=== PATIENT | male | born 1980 | race African-American/Black ===

== ENCOUNTER 2017-09-20 06:10 | Inpatient (IN) | payer BC ==
[~2017-09-20] VITALS: Ht 175.3 cm; Wt 67.6 kg
[2017-09-20] VITALS (40 sets, daily range): BP systolic 94–212; BP diastolic 52–130
--- NOTE | 2017-09-20 06:10 | NUR ---
PT GEOFFREY ALS. TAKEN TO BED 3
--- NOTE | 2017-09-20 06:15 | NUR ---
37YO M BIBA TO ER WITH ALTERED MENTAL STATUS. PER EMS PT WAS AT DIALYSIS, RECEIVED 15 MIN OF TX BEFORE C/O N/V, CP. LAST DIALYSIS TX ON 09/16. PT UNABLE TO RECALL HOME MEDS. DIALYSIS SHUNT ON LEFT CHEST, SKIN WARM DRY INTACT,. PT HAS N/V, SKIN IS PINK/WARM/DRY; AAOX4 WITH EVEN AND STEADY GAIT; LUNGS CLEAR BL; HR EVEN AND REGULAR; PT DENIES ANY FEVER, CP, SOB, OR COUGH AT THIS TIME; PATIENT STATES PAIN OF 0/10 AT THIS TIME; VSS; PATIENT POSITIONED FOR COMFORT; HOB ELEVATED; BEDRAILS UP X2; BED DOWN. ER MD MADE AWARE OF PT STATUS. Addendum: 09/20/17 at 0703 by [email or web address] 37YO M BIBA TO ER WITH ALTERED MENTAL STATUS. PER EMS PT WAS AT DIALYSIS, RECEIVED 15 MIN OF TX BEFORE C/O N/V, CP. LAST DIALYSIS TX ON 09/16. PT UNABLE TO RECALL HOME MEDS. DIALYSIS SHUNT ON LEFT CHEST, SKIN WARM DRY INTACT,. PT HAS N/V, SKIN IS PINK/WARM/DRY; AAOX4 WITH EVEN AND STEADY GAIT; LUNGS CLEAR BL; HR EVEN AND REGULAR; PT DENIES ANY FEVER, SOB, OR COUGH AT THIS TIME; PATIENT STATES PAIN OF 0/10 AT THIS TIME; VSS; PATIENT POSITIONED FOR COMFORT; HOB ELEVATED; BEDRAILS UP X2; BED DOWN. ER MD MADE AWARE OF PT STATUS.
--- NOTE | 2017-09-20 06:17 | NUR ---
Dr. Roque evaluating at bedside.
[2017-09-20] MEDS ORDERED: ONDANSETRON 4 MG/2 ML VIAL IVP ONE (06:25)
--- NOTE | 2017-09-20 06:27 | NUR ---
PT TAKEN TO CT
--- NOTE | 2017-09-20 06:50 | NUR ---
PT BACK FROM CT
--- NOTE | 2017-09-20 06:50 | NUR ---
PT RETURN FROM CT
[2017-09-20] MEDS ORDERED: HUM SUBQ (07:11)
[2017-09-20] MEDS ORDERED: CARV25TA PO (07:11)
[2017-09-20] MEDS ORDERED: SEVE800T6 PO (07:11)
[2017-09-20] MEDS ORDERED: FURO-570 PO (07:11)
[2017-09-20] MEDS ORDERED: INSU100S22 SUBQ (07:11)
[2017-09-20] MEDS ORDERED: CLON0.2T43 PO (07:11)
[2017-09-20] MEDS ORDERED: HYDR100T79 PO (07:11)
[2017-09-20] MEDS ORDERED: ALPR0.5T2 PO (07:11)
[2017-09-20] MEDS ORDERED: CIPR250T6 PO (07:11)
[2017-09-20] MEDS ORDERED: METOCLOPRAMIDE 10 MG/2 ML INJ VIAL IVP ONE (07:15)
--- NOTE | 2017-09-20 07:15 | NUR ---
dry heaving repeatedly, somnolent---htn notified
[2017-09-20] MEDS ORDERED: hydrALAZINE 20 MG/ML VIAL IVP ONE (07:20)
--- NOTE | 2017-09-20 07:30 | NUR ---
RECIEVED REPORT FROM TARSHA.
--- NOTE | 2017-09-20 07:32 | NUR ---
NADR AT THIS TIME
[2017-09-20] MEDS ORDERED: KETOROLAC 30 MG/ML VIAL IVP ONE (07:40)
--- NOTE | 2017-09-20 08:07 | NUR ---
NADR AT THIS TIME
[2017-09-20] MEDS ORDERED: PROMETHAZINE 25 MG/ML VIAL IM ONE (08:10)
[2017-09-20 08:11] LABS: BASOPHILS # (AUTO) 0.1 K/uL (0.00-0.22); BASOPHILS % (AUTO) 1.6 % (0.0-2.0); EOSINOPHILS # (AUTO) 0.1 K/uL (0-0.4); EOSINOPHILS % (AUTO) 1.4 % (0.0-4.0); HEMATOCRIT 34.8 % (36-52); HEMOGLOBIN 11.1 g/dL (12.0-18.0); LYMPHOCYTES # (AUTO) 0.7 K/uL (2.0-11.5); MEAN CORPUSCULAR HEMOGLOBIN 27 pg (27-31); MEAN CORPUSCULAR HGB CONC 32 g/dL (33-37); MEAN CORPUSCULAR VOLUME 86.3 fL (80-94); MONOCYTES # (AUTO) 0.3 K/uL (0.8-1.0); MONOCYTES % (AUTO) 6.8 % (1.7-9.3); NEUTROPHILS # (AUTO) 3.2 K/uL (1.8-7.7); NEUTROPHILS % (AUTO) 75.2 % (42.2-75.2); PLATELET COUNT (AUTO) 280 K/uL (140-450); RED BLOOD CELL COUNT(AUTO) 4.04 MIL/uL (4.20-6.10); RED CELL DISTRIBUTION WIDTH 14.5 % (11.6-13.7); WHITE BLOOD COUNT (AUTO) 4.4 K/uL (4.8-10.8)
--- NOTE | 2017-09-20 08:31 | NUR ---
NADR AT THIS TIME
--- NOTE | 2017-09-20 08:34 | NUR ---
PATIENT STATES HE DOES NOT PRODUCE URINE AND CANNOT PORDUCE A SAMPLE. MD NOTIFIED.
[2017-09-20 08:39] LABS: ALBUMIN 3.6 g/dL (3.4-5.0); ANION GAP 22.4 (8-16); CARBON DIOXIDE 20.8 mmol/L (21-32); POTASSIUM 4.2 mmol/L (3.5-5.1); TOTAL BILIRUBIN 0.4 mg/dL (0.0-1.0)
[2017-09-20 08:42] LABS: ACETAMINOPHEN < 0.5 ug/ml (10-30); SALICYLATE < 2.8 mg/dL (2.8-20.0)
[2017-09-20 08:45] LABS: CREATININE 16.6 mg/dL (0.7-1.3)
--- NOTE | 2017-09-20 09:03 | NUR ---
Patients vitals were reassessed and b/p is still elevated, 217/119. Patient also states still in pain, 01/13. iv flushed with 5mL of NS. ER/MD notified of patients status.
[2017-09-20] MEDS ORDERED: NITROGLYCERIN 50 MG/D5W PREMIX 250 ML IV ONE (09:05)
[2017-09-20] MEDS ORDERED: MORPHINE SULFATE 2 MG/ML SYR IVP ONE (09:10)
--- NOTE | 2017-09-20 09:44 | NUR ---
NITRO DRIP INCREASED TO 10MCG/MIN
[2017-09-20] MEDS ORDERED: MORPHINE SULFATE 4 MG/ML SYR ONE (09:52)
--- NOTE | 2017-09-20 10:30 | NUR ---
NTG INCREASED TO 35MCG/MIN
[2017-09-20] MEDS ORDERED: DEXTROSE 50% 50 ML SYR IVP PRN (11:30)
[2017-09-20] MEDS ORDERED: ONDANSETRON 4 MG/2 ML VIAL IVP PRN (11:30)
[2017-09-20] MEDS ORDERED: MORPHINE SULFATE 4 MG/ML SYR IVP ONE (11:30)
[2017-09-20] MEDS ORDERED: ACETAMINOPHEN 325 MG TAB PO PRN (11:30)
[2017-09-20] MEDS ORDERED: NITROGLYCERIN 50 MG/D5W PREMIX 250 ML IV PRN (11:30)
[2017-09-20] MEDS ORDERED: LORazepam 2 MG/ML VIAL IVP PRN (11:30)
[2017-09-20] MEDS ORDERED: cloNIDine 0.1 MG TAB PO PRN (11:30)
[2017-09-20] MEDS ORDERED: HYDROcodone/APAP 5/325 MG 1 TAB TAB PO PRN ×2 (11:30)
--- NOTE | 2017-09-20 11:51 | NUR ---
NTG AT 100MCG/MIN. BP AT 203/112
--- NOTE | 2017-09-20 11:51 | NUR ---
NADR AT THIS TIME
--- NOTE | 2017-09-20 11:53 | NUR ---
Dr. Barone at bedside.
[2017-09-20] MEDS: BLOOD GLUCOSE MONITORING 1 DEV DEV FS SCH ×3 (12:00→21:45)
--- NOTE | 2017-09-20 13:02 | NUR ---
SPOKE WITH HARMAN AT ICU REGARDING DYALISIS. HARMAN INFORMED US THAT SHE WOULD CALL THE AGENCY FOR DYALISIS.
--- NOTE | 2017-09-20 13:15 | NUR ---
RECEIVED REPORT FROM RN IN ED. PT IS VERY LETHARGIC. TRANSFERRED TO ICU WITH NITRO RUNNING 100 ML/HR. PT HAS A PORT LEFT SIDE OF CHEST. RIGHT 18 HUSEYIN ON RIGHT WRIST. PT IS ABLE TO MOVE ALL EXTREMITIES. PT IS A&0X4. SETTLED PT IN BED AND ON CARDIAC MONITORED. ORIENTED TO UNIT. WILL CLOSELY MONITOR.
--- NOTE | 2017-09-20 13:24 | NUR ---
Patient will be admitted to care of DR. MOURA. Admited to ICU. Will go to room 2. Belongings list completed. Report to DELVIN KATHLEEN.
--- NOTE | 2017-09-20 13:28 | NUR ---
DR COELLO AT BEDSIDE, RECEIVED ORDERS. PT VERY LETHARGIC.
[2017-09-20] MEDS: hydrALAZINE 25 MG TAB PO SCH ×2 (13:44→18:43)
[2017-09-20] MEDS: SEVELAMER CARBONATE 800 MG TAB PO SCH ×2 (13:46→18:41)
[2017-09-20] MEDS ORDERED: NIFEdipine 30 MG TABER PO SCH (13:57)
[2017-09-20] MEDS ORDERED: MORPHINE SULFATE 4 MG/ML SYR IVP PRN (14:05)
--- NOTE | 2017-09-20 14:10 | NUR ---
DR COTE AT BEDSIDE, RECEIVED ORDERS. WILL CLOSELY MONITOR.
[2017-09-20] MEDS: LABETALOL 100 MG/20 ML VIAL IV PRN ×2 (14:29→16:44)
[2017-09-20] MEDS ORDERED: PROBIOTIC SCREEN 1 EA MISC MC PRN (15:20)
--- NOTE | 2017-09-20 16:40 | NUR ---
DIALYSIS BEGAN. BLOOD BANK TECHNOLOGIST AT BEDSIDE
--- NOTE | 2017-09-20 16:52 | NUR ---
PAGING DR. MOURA ABOUT PT BLOOD SUGAR SAYING "HIGH" WHEN CHECKED AT 1630
--- NOTE | 2017-09-20 16:57 | NUR ---
SPOKE WITH DR. MOURA ABOUT BLOOD SUGAR. RECEIVED ORDERS TO CHECK BS AFTER PT FINISHES DIALYSIS. IF BS OVER 500; START INSULIN DRIP 5UNIT/HR.
--- NOTE | 2017-09-20 19:25 | NUR ---
GAVE REPORT TO NIGHT RN FOR CONTINUATION OF CARE
--- NOTE | 2017-09-20 19:44 | NUR ---
RECEIVED SBAR FROM HEVER HARGROVE. DX HYPERTENSIVE EMERGENCY. PATIENT IS SLEEPING IN BED, BUT CAN BE AROUSED BY NAME. NO SIGNS OF RESPIRATORY DISTRESS. PATIENT HAS A NASAL CANNULA AT 2LPM AND TOLERATING WELL. BREATH SOUNDS ARE CLEAR UPON AUSCULTATION AND BOWEL SOUNDS ARE ACTIVE. THERE IS A #20 IN THE RIGHT HAND WITH PATIENT RECEIVING NITROGLYCERIN AT 120 MCG/HR. THERE IS A PERMACATH IN THE [facility] FOR HEMODIALYSIS. DRESSING IS DRY, INTACT, AND CLEAN. INITIAL ASSESSMENT COMPLETED. HOB AT 30 DEGREES WITH BED IN LOWEST POSITION. CALL LIGHT WITHIN REACH. CONTINUE TO MONITOR PATIENT.
[2017-09-20 19:52] LABS: ALBUMIN 3.7 g/dL (3.4-5.0); BILIRUBIN,DIRECT 0.1 mg/dL (0.0-0.3); TOTAL BILIRUBIN 0.5 mg/dL (0.0-1.0)
[2017-09-20] MEDS ORDERED: INSULIN LANTUS 100 UNITS/ML 10 ML VIAL SUBQ SCH (21:00)
[2017-09-20] MEDS: HYDROcodone/APAP 5/325 MG 1 TAB TAB PO PRN (21:30)
[2017-09-20] MEDS: CARVEDILOL 12.5 MG TAB PO SCH (21:35)
[2017-09-20] MEDS: FUROSEMIDE 40 MG TAB PO SCH (21:36)
--- NOTE | 2017-09-20 21:59 | NUR ---
TOLERATED DUE MEDICATIONS. NO SIGNS OF SOB NOTED. HOB AT 30 DEGREES WITH BED IN LOWEST POSITION. CONTINUE TO MONITOR PATIENT.
--- NOTE | 2017-09-20 22:02 | NUR ---
BLOOD SUGAR IS 543 AND PATIENT'S BP REMAINS UNCONTROLLED WITH SBP IN THE 200'S. PAGED DR. WHELAN. WILL WAIT FOR CALL BACK.
--- NOTE | 2017-09-20 22:05 | NUR ---
SPOKE TO DR. WHELAN REGARDING PATIENT'S BS AND BP. NEW ORDERS RECEIVED. ADMINISTER 18 UNITS OF HUMALOG INSULIN STAT AND ADDITIONAL 10 UNITS OF LEVEMIR INSULIN. D/C NITROGLYCERIN DRIP AND START CARDENE DRIP TO KEEP SBP UNDER 160. CLARIFIED LABETALOL PRN FREQUENCY. DR. WHELAN STATED TO ADMINISTER LABETALOL 10MG IVP Q10MIN. CHARGE NURSE MADE AWARE. WILL FOLLOW UP WITH NEW MD ORDERS. Addendum: 09/20/17 at 2221 by Amara Lockhart RN LANTUS, NOT LEVEMIR, INSULIN
[2017-09-20] MEDS ORDERED: LABETALOL 100 MG/20 ML VIAL IV PRN (22:15)
[2017-09-20] MEDS ORDERED: INSULIN LANTUS 100 UNITS/ML 10 ML VIAL SUBQ ONE (22:30)
[2017-09-20] MEDS ORDERED: INSULIN LISPRO 100 UNITS/ML VIAL SUBQ ONE (22:30)
--- NOTE | 2017-09-20 23:05 | NUR ---
NITROGLYCERIN DRIP HOLD BECAUSE THE BP WENT DOWN TO 91/51 HR 87/MIN. CLOSE MONITORING DONE.
[2017-09-20] MEDS ORDERED: chlorproMAZINE 25 MG TAB PO PRN (23:45)
--- NOTE | 2017-09-20 23:45 | NUR ---
BLOOD PRESSURE IS 78/47. PAGED DR. WHELAN. WILL WAIT FOR CALL BACK.
--- NOTE | 2017-09-20 23:53 | NUR ---
SPOKE TO DR. WHELAN REGARDING PATIENT'S BP. ORDERED 1 LITER NS BOLUS AND MONITOR PATIENT. CHARGE NURSE MADE AWARE. CONTINUE TO MONITOR. Addendum: 09/21/17 at 0353 by Amara Lockhart RN ALSO INFORMED DR. WHELAN THAT REGI LANDAVERDE IS NOT AVAILABLE IN [employer].
[2017-09-20] MEDS ORDERED: NACL 0.9% 1,000 ML IV ONE (23:55)
[2017-09-21] VITALS (11 sets, daily range): BP systolic 91–127; BP diastolic 51–77
--- NOTE | 2017-09-21 02:38 | NUR ---
PATIENT SLEEPING IN BED. VITALS SIGNS WNL. NO SIGNS OF RESPIRATORY DISTRESS. HOB AT 30 DEGREES WITH BED IN LOWEST POSITION. CALL LIGHT WITHIN REACH. CONTINUE TO MONITOR PATIENT.
[2017-09-21] MEDS: HYDROcodone/APAP 5/325 MG 1 TAB TAB PO PRN ×3 (04:53→22:09)
--- NOTE | 2017-09-21 05:28 | NUR ---
PATIENT AROUSABLE BY NAME. TOLERATED DUE MEDICATION. ASKED PATIENT IF HE WANTED SUPPLIES TO PERFORM SELF MORNING CARE. PATIENT REFUSED MORNING CARE AT THIS TIME AND REQUESTED TO SLEEP. PATIENT'S NEEDS MET AT THIS TIME. WILL CONTINUE TO MONITOR PATIENT.
[2017-09-21 05:53] LABS: ALBUMIN 2.8 g/dL (3.4-5.0); CARBON DIOXIDE 28.4 mmol/L (21-32); MAGNESIUM 2.1 mg/dL (1.8-2.4); POTASSIUM 4.4 mmol/L (3.5-5.1); TOTAL BILIRUBIN 0.3 mg/dL (0.0-1.0)
[2017-09-21 07:00] LABS: BASOPHILS # (AUTO) 0.1 K/uL (0.00-0.22); BASOPHILS % (AUTO) 1.8 % (0.0-2.0); EOSINOPHILS % (AUTO) 0.2 % (0.0-4.0); HEMATOCRIT 30.1 % (36-52); HEMOGLOBIN 9.6 g/dL (12.0-18.0); LYMPHOCYTES # (AUTO) 0.8 K/uL (2.0-11.5); LYMPHOCYTES % (AUTO) 16.3 % (20.5-51.1); MEAN CORPUSCULAR HEMOGLOBIN 28 pg (27-31); MEAN CORPUSCULAR HGB CONC 32 g/dL (33-37); MEAN CORPUSCULAR VOLUME 87.2 fL (80-94); MONOCYTES # (AUTO) 0.8 K/uL (0.8-1.0); MONOCYTES % (AUTO) 15.2 % (1.7-9.3); NEUTROPHILS # (AUTO) 3.5 K/uL (1.8-7.7); NEUTROPHILS % (AUTO) 66.5 % (42.2-75.2); PLATELET COUNT (AUTO) 236 K/uL (140-450); RED BLOOD CELL COUNT(AUTO) 3.45 MIL/uL (4.20-6.10); WHITE BLOOD COUNT (AUTO) 5.2 K/uL (4.8-10.8)
--- NOTE | 2017-09-21 07:17 | NUR ---
SBAR GIVEN TO YOUNG RN FOR CONTINUITY OF CARE.
--- NOTE | 2017-09-21 07:30 | NUR ---
RECEIVED A REPORT FROM LINEN FOLDER, NANCY HARGROVE. PATIENT IS AAOX4. RESPIRATION ARE EVEN AND UNLABORED. ON O2 2L/MIN VIA N/C. DENIES ANY PAIN OR DISCOMFORT AT THIS TIME. SINUS RHYTHM ON THE MONITOR. SKIN WARM TO TOUCH. PERIPHERAL IV LINE ON RIGHT HAND. PLACED LEFT IJ HEMODIALYSIS AND KEEP CLEAN AND DRY. SAFETY PRECAUTION IMPLEMENTED. BED IN LOW POSITION AND CALL LIGHT WITHIN REACH. WILL CONTINUE TO MONITOR.
[2017-09-21 07:31] LABS: CREATININE 12.8 mg/dL (0.7-1.3)
[2017-09-21] MEDS: BLOOD GLUCOSE MONITORING 1 DEV DEV FS SCH ×4 (07:35→20:14)
--- NOTE | 2017-09-21 07:47 | NUR ---
PAGED DR. THACKER REGARDING CRITICAL LAB RESULT OF TROPONIN 0.073, CREATININE 12.8. WAITING FOR CALL BACK.
--- NOTE | 2017-09-21 07:54 | NUR ---
DR. THACKER CALLED BACK AND WAS NOTIFIED OF CRITICAL LAB RESULT. DR. THACKER STATED THAT THAT IS NORMAL FOR DIALYSIS PATIENT AND NO NEW ORDER AT THIS TIME. WILL CONTINUE TO MONITOR AND FOLLOW UP ON ORDERS.
[2017-09-21] MEDS: hydrALAZINE 25 MG TAB PO SCH ×3 (09:00→17:00)
[2017-09-21] MEDS: NIFEdipine 30 MG TABER PO SCH (09:00)
[2017-09-21] MEDS: CARVEDILOL 12.5 MG TAB PO SCH ×2 (09:00→20:15)
[2017-09-21] MEDS: SEVELAMER CARBONATE 800 MG TAB PO SCH ×3 (09:23→17:41)
[2017-09-21] MEDS: FUROSEMIDE 40 MG TAB PO SCH (09:23)
--- NOTE | 2017-09-21 09:24 | NUR ---
BP MEDICATION NOT GIVEN DUE TO BP 112/63. WILL CONTINUE TO MONITOR.
--- NOTE | 2017-09-21 09:36 | NUR ---
DR. COELLO AND DR. THACKER IN TO SEE PATIENT. DR. THACKER AWARE OF HOLD BP MEDICATION IN THE MORNING WILL CONTINUE TO MONITOR AND FOLLOW UP ON ORDERS.
--- NOTE | 2017-09-21 09:41 | NUR ---
FAXED INITIAL REVIEW TO [facility] [phone] PHONE SALMA [phone]
--- NOTE | 2017-09-21 09:59 | NUR ---
PATIENT'S MOTHER CALLED AND WAS GIVEN AN UPDATE OF PATIENT'S CONDITION.
--- NOTE | 2017-09-21 10:55 | NUR ---
PATIENT STATED THAT HE IS THIRSTY AND BLOOD GLUCOSE NOTED 35 AT 1040. AAOX4 AND SKIN WARM TO TOUCH. CONSUMED 2PACKS OF ORANGE JUICE AND INJECTED D50% 50ML IVP ORDERED. AFTER 15MINS LATER, BLOOD GLUCOSE NOTED 183 WITH NO LONGER SING/SYMPTOM OF HYPOGLYCEMIA AT THIS TIME. WILL CONTINUE TO MONITOR. WAS NOTIFIED.
--- NOTE | 2017-09-21 11:00 | NUR ---
DR. MOURA IN TO SEE PATIENT. WILL FOLLOW UP ON ORDERS.
--- NOTE | 2017-09-21 12:00 | NUR ---
PATIENT DOES NOT WANT TO EAT LUNCH AT THIS TIME AND STATED THAT " I WANT TO SLEEP MORE." WILL CONTINUE TO MONITOR.
--- NOTE | 2017-09-21 13:46 | NUR ---
PATIENT DOES NOT WANT TO EAT LUNCH AND HOLD SEVELAMER AT THIS TIME.
--- NOTE | 2017-09-21 13:58 | NUR ---
PATIENT HAS BEEN SCREENED AND CATEGORIZED MODERATE NUTRITION RISK. PATIENT WILL BE SEEN WITHIN 3-5 DAYS OF ADMISSION. 09/22/17 - 09/24/[address]
--- NOTE | 2017-09-21 14:00 | NUR ---
PATIENT IS AWAKE AND ATE 100% OF LUNCH. STABLE AND DENIES ANY PAIN OR DISCOMFORT AT THIS TIME.
--- NOTE | 2017-09-21 16:00 | NUR ---
PATIENT IS STABLE AND TURN SELF. DENIES ANY PAIN OR DISCOMFORT AT THIS TIME. WILL CONTINUE TO MONITOR.
[2017-09-21] MEDS: INSULIN LISPRO SLIDING SCALE 100 UNITS/ML VIAL SUBQ PRN ×2 (17:48→20:23)
--- NOTE | 2017-09-21 18:29 | NUR ---
DR. MOURA IN TO SEE PATIENT. WILL FOLLOW UP ON ORDERS.
--- NOTE | 2017-09-21 19:20 | NUR ---
REPORT GIVEN TO INTEGRATION SOFTWARE DEVELOPER RN. PATIENT IS STABLE.
--- NOTE | 2017-09-21 19:30 | NUR ---
RECEIVED REPORT FROM MORNING RN. VS STABLE AT THIS TIME. PT SLEEPING BUT AROUSABLE TO NAME. PT AOX4. ABLE TO MAKE NEEDS KNOWN AND COOPERATIVE. PT DENIES PAIN. LUNG SOUNDS CLEAR. PT ON OXYGEN AT 2L/MIN VIA NC. DENIES SOB. S1+S2 HEARD. PULSES PALPABLE IN ALL EXTREMITIES. SINUS RHYTHM ON MONITOR. ABDOMEN ROUND, SOFT, AND NONDISTENDED. BOWEL SOUNDS ACTIVE IN ALL QUADRANTS. NO C/O N/V. PT HAS LEFT SUBCLAVIAN DIALYSIS ACCESS. PT HAS RIGHT HAND PERIPHERAL IV ACCESS 20G. LINE PATENT AND ASYMPTOMATIC. CALL LIGHT WITHIN REACH. BED AT LOW POSSIBLE POSITION. ALL SAFETY PRECAUTIONS ARE IN PLACE. WILL CONTINUE TO MONITOR PT.
[2017-09-21] MEDS: ALPRAZolam 0.5 MG TAB PO PRN (20:14)
[2017-09-21] MEDS ORDERED: INSULIN LANTUS 100 UNITS/ML 10 ML VIAL SUBQ SCH (21:00)
--- NOTE | 2017-09-21 22:00 | NUR ---
NOTIFIED NATALIIA ANGLIN REGARDING HEMODIALYSIS ORDER FOR PT.
--- NOTE | 2017-09-21 22:45 | NUR ---
VS STABLE AT THIS TIME. CURRENTLY NO CHANGE IN CONDITION. PT REPORTS PAIN 3/10. PT REQUESTED FOR SNACK AND WAS GIVEN. PT DOES NOT HAVE ANY OTHER CONCERN AT THIS TIME.
[2017-09-22] VITALS: BP 110/61
--- NOTE | 2017-09-22 01:17 | NUR ---
SINUS RHYTHM ON MONITOR. PT ASLEEP AND DOES NOT APPEAR TO BE IN ANY PAIN. STILL NO URINE OUTPUT AT THIS TIME. CALL LIGHT WITHIN REACH. BED AT LOW POSSIBLE POSITION. ALL SAFETY PRECAUTIONS ARE IN PLACE. WILL CONTINUE TO MONITOR PT.
[2017-09-22] MEDS: HYDROcodone/APAP 5/325 MG 1 TAB TAB PO PRN ×3 (02:37→12:54)
--- NOTE | 2017-09-22 02:45 | NUR ---
PT TRANSFERRED TO TELEMETRY. REPORT GIVEN TO DELVIN FOREMAN FOR CONTINUITY OF CARE. VS STABLE AT THIS TIME. PT IN STABLE CONDITION. ALL PT'S BELONGINGS TAKEN TO PT.
--- NOTE | 2017-09-22 02:46 | NUR ---
RECD. TRANSFER TO TELEMETRY FROM ICU, AWAKE, A/OX4. RESPIRATION EVEN AND UNLABORED. 0N 02 AT 2 LITERS VIA N/C, 02 SAT - 100%. WITH DIALYSIS CATHETER AT THE RIGHT IJ, WITH DRESSING, DRY AND INTACT. IV LINE AT THE RIGHT HAND G20, PATENT. ORIENTED TO ROOM, PLAN OF CARE FOR THE SHIFT DISCUSSED. VERBALIZED UNDERSTANDING. MADE COMFORTABLE WITH WARM BLANKETS AND PILLOWS. SR ON TELE MONITORING. DENIES PAIN 0/10.
--- NOTE | 2017-09-22 03:05 | NUR ---
ALYSON DANIELS, REMINDED THAT HE GOT IT BEFORE HE WAS TRANSFERRED AND ALSO THE [facility].
--- NOTE | 2017-09-22 03:10 | NUR ---
Patient's Plan of Care was discussed and reviewed with BOAT OAR MAKER: KELLEN MONTEJO
[2017-09-22 04:00] VITALS: BP 136/81
[2017-09-22] MEDS: BLOOD GLUCOSE MONITORING 1 DEV DEV FS SCH ×2 (05:55→11:30)
[2017-09-22] MEDS: INSULIN LISPRO SLIDING SCALE 100 UNITS/ML VIAL SUBQ PRN ×2 (05:58→12:59)
--- NOTE | 2017-09-22 07:15 | NUR ---
CONDITION REMAIN STABLE. ENDORSED TO AM NURSE FOR PAIN REASSESSMENT AND CONTINUITY OF CARE.
[2017-09-22 08:00] VITALS: BP 127/86
[2017-09-22] MEDS: hydrALAZINE 25 MG TAB PO SCH ×2 (08:30→13:00)
[2017-09-22] MEDS: NIFEdipine 30 MG TABER PO SCH (08:30)
[2017-09-22] MEDS: CARVEDILOL 12.5 MG TAB PO SCH (08:30)
[2017-09-22] MEDS: SEVELAMER CARBONATE 800 MG TAB PO SCH ×2 (08:31→13:00)
[2017-09-22 08:45] LABS: HEPATITIS A ANTIBODY IGM Negative (Negative); HEPATITIS B CORE AB TOTAL Negative (Negative); HEPATITIS B SURFACE ANTIBODY Reactive (.); HEPATITIS B SURFACE ANTIGEN Negative (Negative)
--- NOTE | 2017-09-22 10:30 | NUR ---
DR MOURA AT BEDSIDE, PLAN OF CARE DISCUSSED, PT VERBALIZED UNDERSTANDING, DC HOME AFTER HD PER DR MOURA, AWAITING BLOOD TEST RESULT.
[2017-09-22 10:36] LABS: ANION GAP 14.9 (8-16); CARBON DIOXIDE 26.3 mmol/L (21-32); POTASSIUM 4.2 mmol/L (3.5-5.1)
[2017-09-22 10:40] LABS: CREATININE 15.9 mg/dL (0.7-1.3)
--- NOTE | 2017-09-22 12:30 | NUR ---
DIALYSIS NURSE AT BEDSIDE.
[2017-09-22] MEDS: ALPRAZolam 0.5 MG TAB PO PRN (12:54)
--- NOTE | 2017-09-22 14:10 | NUR ---
CM NOTE DISCHARGE SUMMARY FAXED TO [facility] / FAX# [phone], ATTN: SALMA #[phone]
[2017-09-22 14:26] VITALS: BP 131/71
[2017-09-22 16:00] VITALS: BP 129/82
--- NOTE | 2017-09-22 16:55 | NUR ---
DC INSTRUCTION GIVEN AND EXPLAINED TO PT, PT VERBALIZED FULL UNDERSTANDING, IV DC'D, CATH TIP INTACT, BLEEDING CONTROLLED, BP 140/89, PT TO F/U WITH PCP WITHIN 3-5DAYS AND DIALYSIS SCHEDULED TOMORROW. AWAITING MOTHER TO PICK HIM UP.
--- NOTE | 2017-09-22 17:22 | NUR ---
PT UP OUT OF BED WITHOUT PROBLEM, AMBULATES WITH STEADY GAIT, DC HOME WITH MOTHER.
== END 2017-09-22 17:22 | disposition home or self-care (01) | DRG 304 ==
LOC: MED 06:10 → MIC 11:26 → MMU 09-22 02:45 → MTU 09-22 08:29
PROVIDERS: ADMIT Hospitalist; ATTEND Hospitalist
PROC: 5A1D70Z Performance of Urinary Filtration, Intermittent, Less than 6 Hours Per Day (ICD-10-PCS; principal; 2017-09-20)
PROC: 5A1D70Z Performance of Urinary Filtration, Intermittent, Less than 6 Hours Per Day (ICD-10-PCS; 2017-09-22)
DX: I16.1 Hypertensive emergency (principal); N18.6 End stage renal disease; G93.41 Metabolic encephalopathy; E11.21 Type 2 diabetes mellitus with diabetic nephropathy; E11.22 Type 2 diabetes mellitus with diabetic chronic kidney disease; F11.20 Opioid dependence, uncomplicated; F41.9 Anxiety disorder, unspecified; E78.5 Hyperlipidemia, unspecified; I12.0 Hypertensive chronic kidney disease with stage 5 chronic kidney disease or end stage renal disease; Z91.19 Patient's noncompliance with other medical treatment and regimen; Z88.0 Allergy status to penicillin; Z99.2 Dependence on renal dialysis
CPT/HCPCS: 36415; 70450; 71045; 80048; 80053; 80076; 82550; 82948; 83605; 83735; 83880; 84100; 84484; 85025; 86704; 86706; 86708; 86709; 86803; 87040; 87081; 87340; 90935; 93005; 96372; 96374; 96375; 96376; 99285; C1758; G0480; G0482; J0360; J1644; J1815; J1885; J2060; J2270; J2405; J2550; J2765; J3490; J7030; Q0092